=== PATIENT | female | born 1990 | race Caucasian/White ===

== ENCOUNTER → 2017-06-11 | Outpatient (CLI) | payer OTHER ==
[~2017-06-11] MED LIST: ASCA500 PO; AZIT250T PO; BCPILLS PO; DAYQLIQ; IBUP-1050 PO; ZFRODT4 SL
== END | disposition home or self-care (01) ==
LOC: C.PAPS 14:32
PROVIDERS: ATTEND Physician Assistant
DX: Z12.4 Encounter for screening for malignant neoplasm of cervix (principal); R87.616 Satisfactory cervical smear but lacking transformation zone

== ENCOUNTER → 2018-02-05 | Outpatient (CLI) | payer OTHER ==
[2018-02-05 10:28] LABS: ALBUMIN 3.2 gm/dl (3.4-5.0); ALKALINE PHOSPHATASE 106 U/L (45-117); ALT/SGPT 18 U/L (12-78); AST/SGOT 11 U/L (15-37); BLOOD UREA NITROGEN 9 mg/dl (7-18); CALCIUM 8.4 mg/dl (8.5-10.1); CARBON DIOXIDE 22 mmol/L (21-32); CHOLESTEROL 143 mg/dl (0-200); GLUCOSE 86 mg/dl (70-99); LDL CHOLESTEROL CALCULATED 87 mg/dl; SODIUM 137 mmol/L (136-145); TOTAL PROTEIN 7.1 gm/dl (6.4-8.2); TRANSFERRIN 329 mg/dl (200-360); URIC ACID 5.1 mg/dl (2.6-7.2)
[2018-02-05 10:35] LABS: HEMATOCRIT 27.6 % (37-47); HEMOGLOBIN 7.8 g/dL (12.0-16.0); MEAN CORPUSCULAR HEMOGLOBIN 17.5 pg (25-34); MEAN CORPUSCULAR HGB CONC 28.3 g/dl (32-36); PLATELET COUNT 240 K/uL (130-400); RED CELL DISTRIBUTION WIDTH CV 18.6 % (11.5-14.5); RED CELL DISTRIBUTION WIDTH SD 42.4 fL (36.4-46.3); WHITE BLOOD COUNT 5.38 K/uL (4.8-10.8)
[2018-02-05 10:59] LABS: BASO % 0.7 %; BASO ABS # 0.04 K/uL (0-0.2); EOS % 1.9 %; IG# 0.01 K/uL (0.00-0.02); LYMPH % 23.8 %; LYMPH ABS # 1.28 K/uL (1.2-3.4); MONO % 4.5 %; MONO ABS # 0.24 K/uL (0.11-0.59); NEUT % 68.9 %; RETIC COUNT % 1.9 % (0.5-2.0)
[2018-02-08 00:34] LABS: ANA SCREEN TC 249X NEGATIVE (NEGATIVE)
[2018-02-11 19:38] LABS: V-ZOSTER CULT NOT ISOLATED
== END | disposition home or self-care (01) ==
LOC: C.LAB 08:18
PROVIDERS: ATTEND Internal Medicine
DX: M25.50 Pain in unspecified joint (principal); E66.01 Morbid (severe) obesity due to excess calories; D64.9 Anemia, unspecified